=== PATIENT | female | born 1935 | race African-American/Black ===

== ENCOUNTER 2020-03-13 03:24 | Emergency (ER) | payer OTHER ==
[~2020-03-13] VITALS: Ht 167.6 cm; Wt 74.8 kg
[2020-03-13 03:36] VITALS: Ht 167.6 cm; Wt 74.8 kg
[2020-03-13 05:52] VITALS: BP 149/59
== END 2020-03-13 05:52 | disposition home or self-care (01) ==
LOC: ED 03:24
DX: N95.2 Postmenopausal atrophic vaginitis (principal); R30.0 Dysuria